=== PATIENT | female | born 1955 | race Asian ===

== ENCOUNTER 2020-09-21 08:45 | Outpatient (CLI) | payer OTHER | END 2020-09-21 19:40 | disposition home or self-care (01) | LOC: INF 08:45 | PROVIDERS: ATTEND Internal Medicine | DX: Z23 Encounter for immunization (principal) | CPT/HCPCS: 96372 ==

== ENCOUNTER 2020-10-19 08:28 | Outpatient (CLI) | payer OTHER | END 2020-10-19 19:52 | disposition home or self-care (01) | LOC: INF 08:28 | PROVIDERS: ATTEND Internal Medicine | DX: Z23 Encounter for immunization (principal) | CPT/HCPCS: 96372 ==

== ENCOUNTER 2020-12-09 08:38 | Outpatient (CLI) | payer OTHER ==
[2020-12-09 09:36] LABS: PLATELET COUNT 253 K/uL (152-353)
== END 2020-12-09 21:55 | disposition home or self-care (01) ==
LOC: US 08:38
PROVIDERS: ATTEND Internal Medicine Nephrology
DX: R79.89 Other specified abnormal findings of blood chemistry (principal)
CPT/HCPCS: 36415; 81000; 82570; 82784; 84155; 84550; 85027; 86160